=== PATIENT | male | born 1935 | race Caucasian/White ===

== ENCOUNTER 2018-07-06 18:28 | Emergency (ER) | payer OTHER ==
--- NOTE | 2018-07-06 19:35 | ER ---
Nurse's Notes [facility] Name: Lincoln Ybarra Age: 83 yrs Sex: Male : 1935 Arrival Date: 07/06/2018 Time: 18:32 Bed 30 Private MD: Diagnosis: Fever, unspecified;Abdominal tenderness-obstructive jaundice;Cholelithiasis Presentation: 07/06 18:41 Presenting complaint: Patient states: few months ago, i was diagnosed with COPD; took hj amlodipine and abena, i started having fever last June 19, after few days i started itching and today i started turning yellow; reports loss of appetite, denies diarrhea;. Transition of care: patient was not received from another setting of care. Onset of symptoms was July 06, 2018. Risk Assessment: Do you want to hurt yourself or someone else? Patient reports no desire to harm self or others. Initial Sepsis Screen: Does the patient meet any 2 criteria? No. Patient's initial sepsis screen is negative. Does the patient have a suspected source of infection? No. Patient's initial sepsis screen is negative. Care prior to arrival: None. 18:41 Method Of Arrival: Ambulatory 18:41 Acuity: DANIELA 3 hj Triage Assessment: 18:46 General: Appears in no apparent distress. uncomfortable, Behavior is calm, cooperative, hj appropriate for age. Pain: Complains of pain in abdomen. GI: Reports lower abdominal pain, upper abdominal pain. Historical: - Allergies: 18:46 No Known Allergies; hj - Home Meds: 18:46 amlodipine oral [Active]; Theophylline Oral [Active]; pro air [Active]; hj - PMHx: 18:46 COPD; hj - PSHx: 18:46 Hernia repair; hj - Immunization history:: Adult Immunizations up to date. - Social history:: Smoking status: Patient/guardian denies using tobacco, Patient/guardian denies using alcohol. - Ebola Screening: : Patient negative for fever greater than or equal to 101.5 degrees Fahrenheit, and additional compatible Ebola Virus Disease symptoms Patient denies exposure to infectious person Patient denies travel to an Ebola-affected area in the 21 days before illness onset. Screenin:46 Abuse screen: Denies threats or abuse. Denies injuries from another. Nutritional hj screening: No deficits noted. Tuberculosis screening: No symptoms or risk factors identified. Fall Risk None identified. Assessment: 18:47 GI: Bowel sounds present X 4 quads. Abd is soft. hj 19:13 General: Appears in no apparent distress. comfortable, Behavior is calm, cooperative. mg2 Pain: Denies pain. Neuro: Level of Consciousness is awake, alert, obeys commands, Oriented to person, place, time, situation. Cardiovascular: Capillary refill < 3 seconds Patient's skin is warm and dry. Respiratory: Airway is patent Respiratory effort is even, unlabored, Respiratory pattern is regular, symmetrical. : No signs and/or symptoms were reported regarding the genitourinary system. EENT: Eyes yellow. Derm: Skin is intact, is healthy with good turgor, Skin is jaundiced, Reports itching. Musculoskeletal: Circulation, motion, and sensation intact. Capillary refill < 3 seconds. 19:42 Reassessment: pt started drinking oral contrast, pt transported to ultrasound. tl3 20:45 Reassessment: patient sent [place] [facility] [place]:26 Reassessment: report called to [facility]. Transfer form signed by [facility] [place]. Vital Signs: 18:47 BP 192 / 85; Pulse 108; Resp 18; Temp 97; Pulse Ox 100% on R/A; Weight 94.8 kg; Height hj 6 ft. 1 in. (185.42 cm); Pain 5/10; 19:16 BP 184 / 76 LA Supine (auto/reg); Resp 18; mg2 22:09 BP 157 / 78; Pulse 93; Resp 18; Temp 98; Pulse Ox 96% on R/A; Pain 0/10; mg2 23:30 BP 148 / 78; Pulse 92; Resp 18; Pulse Ox 95% on R/A; Pain 0/10; mg2 18:47 Body Mass Index 27.57 (94.80 kg, 185.42 cm) ED Course: 18:32 Patient arrived in ED. mr 18:45 Triage completed. hj 18:47 Arm band placed on right wrist. hj 18:47 Patient has correct armband on for positive identification. Placed in gown. Bed in low hj position. Call light in reach. Side rails up X 1. 19:01 Philip Torres RN is Primary Nurse. mg2 19:07 Gaurav Goncalves MD is Attending Physician. kelsey 19:15 No provider procedures requiring assistance completed. Inserted saline lock: 20 gauge mg2 in left antecubital area, using aseptic technique. Blood collected. 19:42 US Abdomen Limited Sent. tl3 19:55 US Abdomen Limited In Process Unspecified. EDMS 20:05 XRAY Chest (1 view) In Process Unspecified. EDMS 20:[address] via stretcher. jj2 20:51 CT completed. Patient tolerated procedure well. Patient moved back from CT. jj2 20:51 CT Abd/Pelvis - W/Contrast In Process Unspecified. EDMS 22:07 Notified ED physician of a critical lab result(s). total bili 23.4 Dr Goncalves notified.bb 23:30 Patient transferred, IV remains in place. mg2 Administered Medications: 20:21 Drug: NS 0.9% 500 ml Route: IV; Rate: bolus; Site: left antecubital; mg2 22:55 Follow up: Response: No adverse reaction; IV Status: Completed infusion mg2 20:40 Drug: ProTONIX 40 mg Route: IVP; Site: left antecubital; mg2 22:54 Follow up: Response: No adverse reaction; Marked relief of symptoms mg2 20:41 Drug: Zosyn 3.375 grams Route: IVPB; Infused Over: 60 mins; Site: left antecubital; mg2 22:55 Follow up: Response: No adverse reaction; IV Status: Completed infusion mg2 20:42 Drug: NS 0.9% 1000 ml Route: IV; Rate: 125 ml/hr; Site: left antecubital; Delivery: tl3 Primary tubing; 22:55 Follow up: Response: No adverse reaction mg2 22:55 Follow up: IV Status: Infusion continued upon transfer mg2 Outcome: 19:35 ER care complete, transfer ordered by . kelsey 23:31 Transferred by ground EMS to [facility], Transfer form completed. mg2 23:31 Condition: stable 23:31 Instructed on the need for transfer, Demonstrated understanding of instructions. 23:31 Patient left the ED. mg2 Signatures: Dispatcher [employer] Gaurav Hernandes MD MD cha Rivera, Carl Archibald jj2 Erika Mancini RN RN bb Zev Rogers RN RN Guerda Cohen RN RN tl3 Gardose, Philip, RN RN mg2
--- NOTE | 2018-07-06 19:36 | EDPHYS ---
Physician Documentation [facility] Name: Lincoln Ybarra Age: 83 yrs Sex: Male : 1935 Arrival Date: 07/06/2018 Time: 18:32 Bed 30 Private MD: ED Physician Gaurav Goncalves HPI: 07/06 19:27 This 83 yrs old Male presents to ER via Ambulatory with complaints of Fever, kelsey Decreased Appetite, Jaundice, Abdominal Pain. 19:27 The patient reports fever, that was measured at 102 degrees Fahrenheit. Onset: The kelsye symptoms/episode began/occurred 3 day(s) ago. Historical: - Allergies: 18:46 No Known Allergies; hj - Home Meds: 18:46 amlodipine oral [Active]; Theophylline Oral [Active]; pro air [Active]; hj - PMHx: 18:46 COPD; hj - PSHx: 18:46 Hernia repair; hj - Immunization history:: Adult Immunizations up to date. - Social history:: Smoking status: Patient/guardian denies using tobacco, Patient/guardian denies using alcohol. - Ebola Screening: : Patient negative for fever greater than or equal to 101.5 degrees Fahrenheit, and additional compatible Ebola Virus Disease symptoms Patient denies exposure to infectious person Patient denies travel to an Ebola-affected area in the 21 days before illness onset. ROS: 19:28 Constitutional: Negative for fever, chills, and weight loss, Eyes: Negative for injury, kelsey pain, redness, and discharge, ENT: Negative for injury, pain, and discharge, Neck: Negative for injury, pain, and swelling, Respiratory: Negative for shortness of breath, cough, wheezing, and pleuritic chest pain, Back: Negative for injury and pain, : Negative for injury, bleeding, discharge, and swelling, MS/Extremity: Negative for injury and deformity, Neuro: Negative for headache, weakness, numbness, tingling, and seizure, Psych: Negative for depression, anxiety, suicide ideation, homicidal ideation, and hallucinations, Allergy/Immunology: Negative for hives, rash, and allergies, Endocrine: Negative for neck swelling, polydipsia, polyuria, polyphagia, and marked weight changes, Hematologic/Lymphatic: Negative for swollen nodes, abnormal bleeding, and unusual bruising. 19:28 Cardiovascular: Positive for palpitations. 19:28 Abdomen/GI: Positive for abdominal pain, abdominal cramps. 19:28 Skin: Positive for jaundice. Exam: 19:28 Constitutional: This is a well developed, well nourished patient who is awake, alert, kelsey and in no acute distress. Head/Face: Normocephalic, atraumatic. ENT: Nares patent. No nasal discharge, no septal abnormalities noted. Tympanic membranes are normal and external auditory canals are clear. Oropharynx with no redness, swelling, or masses, exudates, or evidence of obstruction, uvula midline. Mucous membranes moist. Neck: Trachea midline, no thyromegaly or masses palpated, and no cervical lymphadenopathy. Supple, full range of motion without nuchal rigidity, or vertebral point tenderness. No Meningismus. Chest/axilla: Normal chest wall appearance and motion. Nontender with no deformity. No lesions are appreciated. Cardiovascular: Regular rate and rhythm with a normal S1 and S2. No gallops, murmurs, or rubs. Normal PMI, no JVD. No pulse deficits. Respiratory: Lungs have equal breath sounds bilaterally, clear to auscultation and percussion. No rales, rhonchi or wheezes noted. No increased work of breathing, no retractions or nasal flaring. Back: No spinal tenderness. No costovertebral tenderness. Full range of motion. Male : Normal genitalia with no discharge or lesions. MS/ Extremity: Pulses equal, no cyanosis. Neurovascular intact. Full, normal range of motion. Neuro: Awake and alert, GCS 15, oriented to person, place, time, and situation. Cranial nerves II-XII grossly intact. Motor strength 5/5 in all extremities. Sensory grossly intact. Cerebellar exam normal. Normal gait. Psych: Awake, alert, with orientation to person, place and time. Behavior, mood, and affect are within normal limits. 19:28 Eyes: Sclera: icterus. Vital Signs: 18:47 BP 192 / 85; Pulse 108; Resp 18; Temp 97; Pulse Ox 100% on R/A; Weight 94.8 kg; Height hj 6 ft. 1 in. (185.42 cm); Pain 5/10; 19:16 BP 184 / 76 LA Supine (auto/reg); Resp 18; mg2 22:09 BP 157 / 78; Pulse 93; Resp 18; Temp 98; Pulse Ox 96% on R/A; Pain 0/10; mg2 23:30 BP 148 / 78; Pulse 92; Resp 18; Pulse Ox 95% on R/A; Pain 0/10; mg2 18:47 Body Mass Index 27.57 (94.80 kg, 185.42 cm) hj MDM: 19:07 Patient medically screened. [facility] 19:28 Data reviewed: vital signs, nurses notes, lab test result(s), EKG, radiologic studies, [facility] CT scan, plain films, ultrasound. 07/06 19:26 Order name: Basic Metabolic Panel; Complete Time: 20:44 [facility] 07/06 19:26 Order name: CBC with Diff; Complete Time: 20:44 [facility] 07/06 19:26 Order name: LFT's; Complete Time: 20:44 [facility] 07/06 19:26 Order name: Magnesium; Complete Time: 20:44 [facility] 07/06 19:26 Order name: NT PRO-BNP; Complete Time: 20:44 [facility] 07/06 19:26 Order name: PT-INR; Complete Time: 20:44 [facility] 07/06 19:26 Order name: Troponin (emerg Dept Use Only); Complete Time: 20:44 [facility] 07/06 19:26 Order name: Basic Metabolic Panel [facility] 07/06 19:26 Order name: Lipase; Complete Time: 20:44 [facility] 07/06 19:26 Order name: Urine Culture [facility] 07/06 19:26 Order name: XRAY Chest (1 view); Complete Time: 20:44 [facility] 07/06 19:26 Order name: EKG; Complete Time: 19:29 [facility] 07/06 19:26 Order name: Cardiac monitoring; Complete Time: 19:28 [facility] 07/06 19:26 Order name: EKG - Nurse/Tech; Complete Time: 19:28 [facility] 07/06 19:26 Order name: IV Saline Lock; Complete Time: 19:28 [facility] 07/06 19:26 Order name: Labs collected and sent; Complete Time: 19:28 [facility] 07/06 19:26 Order name: O2 Per Protocol; Complete Time: 19:28 [facility] 07/06 19:26 Order name: O2 Sat Monitoring; Complete Time: 19:29 [facility] 07/06 19:26 Order name: US Abdomen Limited; Complete Time: 20:44 [facility] 07/06 19:26 Order name: CT Abd/Pelvis - W/Contrast; Complete Time: 21:13 kelsey 07/06 19:26 Order name: Urine Dipstick-Ancillary (obtain specimen); Complete Time: 22:54 [facility] Administered Medications: 20:21 Drug: NS 0.9% 500 ml Route: IV; Rate: bolus; Site: left antecubital; mg2 22:55 Follow up: Response: No adverse reaction; IV Status: Completed infusion mg2 20:40 Drug: ProTONIX 40 mg Route: IVP; Site: left antecubital; mg2 22:54 Follow up: Response: No adverse reaction; Marked relief of symptoms mg2 20:41 Drug: Zosyn 3.375 grams Route: IVPB; Infused Over: 60 mins; Site: left antecubital; mg2 22:55 Follow up: Response: No adverse reaction; IV Status: Completed infusion mg2 20:42 Drug: NS 0.9% 1000 ml Route: IV; Rate: 125 ml/hr; Site: left antecubital; Delivery: tl3 Primary tubing; 22:55 Follow up: Response: No adverse reaction mg2 22:55 Follow up: IV Status: Infusion continued upon transfer mg2 Disposition: 07/06/18 19:35 Transfer ordered to [facility]. Diagnosis are Fever, unspecified, Abdominal tenderness - obstructive jaundice, Cholelithiasis. - Reason for transfer: Higher level of care. - Accepting physician is to [facility]. - Condition is Fair. - Problem is new. - Symptoms have improved. Signatures: Dispatcher [employer] EDGaurav Lewis MD MD cha Joaquin, Henry, RN RN Guerda Cohen RN RN [facility] Philip Torres RN RN mg2 Corrections: (The following items were deleted from the chart) 19:27 19:26 IV Saline Lock ordered. mg2 mg2 19:27 19:26 Labs collected and sent ordered. mg2 mg2 20:48 19:35 07/06/2018 19:35 Transfer ordered to [facility]. Diagnosis is [facility] Fever, unspecified; Abdominal tenderness - obstructive jaundice. Reason for transfer: Higher level of care. Accepting physician is to [facility]. Condition is Fair. Problem is new. Symptoms have improved. [facility] 22:03 19:28 CBC+H.LAB.BRZ ordered. EDCO EDMS 22:03 19:28 Creatinine for Radiology+C.LAB.BRZ ordered. EDMS EDMS 22:03 19:28 HEPATIC FUNCTION+C.LAB.BRZ ordered. EDMS EDMS 22:03 19:28 LIPASE+C.LAB.BRZ ordered. EDMS EDMS 23:31 20:48 07/06/2018 19:35 Transfer ordered to [facility]. Diagnosis is mg2 Fever, unspecified; Abdominal tenderness - obstructive jaundice; Cholelithiasis. Reason for transfer: Higher level of care. Accepting physician is to [facility]. Condition is Fair. Problem is new. Symptoms have improved. kelsey
[2018-07-06] MEDS ORDERED: NA CHLORIDE 0.9% 1,000 ML ONE (19:44)
[2018-07-06] MEDS ORDERED: PIPER/TAZO/NS 3.375gm 3.375 GM/100 ML BAG ONE ×2 (19:44→20:34)
[2018-07-06 19:47] LABS: Absolute Lymphocytes (CBC) 1.6 K/uL (0.7-4.9); Absolute Monocytes 0.8 K/uL (0.1-1.3); Absolute Neutrophil 7.4 K/uL (1.8-8.0); Basophils % 0.8 % (0-1.3); Hematocrit 45.3 % (39.6-49.0); Lymphocytes % 15.8 % (15.3-44.8); MPV 9.9 fL (7.6-11.3)
[2018-07-06 19:57] LABS: Protime INR 1.23
--- NOTE | 2018-07-06 20:21 | RAD REPORT ---
EXAM DESCRIPTION: US - Abdomen Exam Limited - 07/06/2018 7:54 pm CLINICAL HISTORY: ABD PAIN COMPARISON: No comparisons FINDINGS: The gallbladder demonstrates gallbladder sludge and stones. No pericholecystic fluid or ga llbladder wall thickening. The common bile duct is dilated measuring 13 mm. The liver demonstrates no findings of intrahepatic biliary dilatation. IMPRESSION: Cholelithiasis is present with gallbladder sludge. Dilated common bile duct to 13 mm. Followup MRCP would be useful for further assessment.
[2018-07-06 20:22] LABS: Albumin 2.8 g/dL (3.4-5.0); Bilirubin Direct 19.5 mg/dL (0-0.2); Magnesium 2.2 mg/dL (1.8-2.4); Potassium 4.1 mmol/L (3.5-5.1); Troponin (Emerg Dept Use Only) 0.1 ng/mL (0.0-0.045)
--- NOTE | 2018-07-06 20:23 | RAD REPORT ---
EXAM DESCRIPTION: RAD - Chest Single View - 07/06/2018 8:05 pm CLINICAL HISTORY: ABDOMINAL DISTENTION Chest pain. COMPARISON: No comparisons FINDINGS: Portable technique limits examination quality. The lungs are grossly clear. Trace right pleural fluid suspected. The heart is normal in size. No dis placed fractures.Aortic atherosclerosis.
[2018-07-06 20:25] LABS: Protein, Total 7.1 g/dL (6.4-8.2)
[2018-07-06 20:30] LABS: Bilirubin Total 23.4 mg/dL (0.2-1.0)
[2018-07-06] MEDS ORDERED: PANTOPRAZOLE 40 MG INJ ONE (20:33)
--- NOTE | 2018-07-06 21:09 | RAD REPORT ---
EXAM DESCRIPTION: CTAbdomen Pelvis W Contrast - 07/06/2018 8:50 pm CLINICAL HISTORY: Abdominal pain. ABD PAIN COMPARISON: Abdomen Exam Limited dated 07/06/2018; Chest Single View dated 07/06/2018 TECHNIQUE: Biphasic CT imaging of the abdomen and pelvis was performed with 100 ml non-ionic IV cont rast. All CT scans are performed using dose optimization technique as appropriate and may include automated exposure control or mA/KV adjustment according to patient size. FINDINGS: The lung bases are clear.Small hiatal hernia is present with gastroesophageal reflux. Moderate intrahepatic biliary dilatation is seen. Several small poorly defined low-density liver lesi ons are also seen predominately in the left lobe of the liver. The anterior left lobe of the liver de monstrates a 3 cm cyst. The common bile duct is dilated throughout its course to the level of the amp dawit. The gallbladder appears distended. The pancreatic duct is slightly prominent. There is a very s ubtle 12 mm area of hypoenhancement seen in the uncinate process of the pancreas adjacent to the dist al common duct. The spleen, adrenal glands and kidneys show no acute process. Several parapelvic cysts are present in volving the left kidney. Small nonobstructing right renal stones are also present. A small 7 mm stone is also noted in the urinary bladder. Several small bladder diverticulum are present. No bowel obstruction, free air, free fluid or abscess. Sigmoid diverticulosis is present without dive rticulitis. The appendix is normal. No evidence of significant lymphadenopathy. Lumbar degenerative changes are present. Prostate gland is mildly prominent. IMPRESSION: Moderate intrahepatic and common bile duct dilatation is present to the level of the amp dawit. This may be a result of the distal common bile duct stone, debris or mass. It is possible that the poorly defined subtle area of hypoenhancement in the uncinate process is of the pancreas represen ts a small pancreatic mass causing this obstruction. ERCP would be recommended for further assessment of this finding.
--- NOTE | 2018-07-07 06:21 | EKG ---
Test Date: 2018-07-06 Test Time: 20:35:28 Substation Electrician Supervisor: MG MEASUREMENT RESULTS: Intervals: Rate: 105 OR: 180 QRSD: 112 QT: 346 QTc: 457 [place]: P: -3 OR: 180 QRS: -30 T: 76 INTERPRETIVE STATEMENTS: Sinus tachycardia Left axis deviation Abnormal ECG No previous ECG available for comparison Electronically Signed On 07-07-18 06:15:02 FASHION ILLUSTRATOR by Saumel Alvarez
== END 2018-07-06 23:31 | disposition short-term general hospital (02) ==
LOC: ER 18:28
DX: K83.1 Obstruction of bile duct (principal); K80.21 Calculus of gallbladder without cholecystitis with obstruction; J44.9 Chronic obstructive pulmonary disease, unspecified
CPT/HCPCS: 36415; 71045; 74177; 76705; 80048; 80076; 83690; 83735; 83880; 84484; 85025; 85610; 87086; 87088; 93005; 96365; 96366; 96375; 99285; C9113; J2543 ×2; J7030; Q9967